=== PATIENT | female | born 1970 | race Caucasian/White ===

== ENCOUNTER 2018-10-09 22:57 | Emergency (ER) | payer OTHER ==
[~2018-10-09] VITALS: Ht 160 cm; Wt 104.3 kg
[2018-10-09 23:25] VITALS: BP_SYST 148
[2018-10-09] MEDS ORDERED: PREDNISONE 20 MG TABLET PO ONE (23:45)
[2018-10-09] MEDS ORDERED: IPRATROPIUM/ALBUTEROL SULFATE 3 ML AMPUL.NEB (DUONEB) INH ONE (23:45)
[2018-10-10 00:20] VITALS: BP_SYST 148
== END 2018-10-10 00:30 | disposition home or self-care (01) ==
LOC: SED 22:57
DX: J40 Bronchitis, not specified as acute or chronic (principal); E11.9 Type 2 diabetes mellitus without complications; I10 Essential (primary) hypertension; Z98.51 Tubal ligation status; Z88.8 Allergy status to other drugs, medicaments and biological substances
CPT/HCPCS: 94640; 99283; J7512; J7620

== ENCOUNTER 2018-10-18 08:45 | Outpatient (CLI) | payer OTHER ==
[2018-10-18 09:30] LABS: BASOPHILS % (AUTO) 0.2 % (0.0-2.0); EOSINOPHILS # (AUTO) 0.2 K/uL (0.0-0.4); EOSINOPHILS % (AUTO) 1.8 % (0.0-4.0); HEMOGLOBIN 11.8 g/dL (12.0-16.0); LYMPHOCYTES # (AUTO) 3.2 K/uL (1.0-5.5); LYMPHOCYTES % (AUTO) 35.1 % (20.5-51.5); MEAN CORPUSCULAR HEMOGLOBIN 27 pg (27-31); MEAN CORPUSCULAR HGB CONC 32 % (32-36); MEAN CORPUSCULAR VOLUME 86 fL (79.0-98.0); MONOCYTES # (AUTO) 0.9 K/uL (0.0-1.0); MONOCYTES % (AUTO) 9.3 % (1.7-9.3); NEUTROPHILS # (AUTO) 4.9 K/uL (1.8-7.7); NEUTROPHILS % (AUTO) 53.6 % (40.0-70.0); PLATELET COUNT (AUTO) 224 K/uL (130-430); RED BLOOD CELL COUNT(AUTO) 4.32 MIL/uL (4.2-6.2); RED CELL DISTRIBUTION WIDTH 14.6 % (9.0-15.0); WHITE BLOOD COUNT (AUTO) 9.2 K/uL (4.8-10.8)
[2018-10-18 09:31] LABS: BILIRUBIN,URINE NEGATIVE (NEGATIVE); BLOOD, URINE 1+ (NEGATIVE); CLARITY/URINE CLEAR (CLEAR); COLOR,URINE YELLOW (YELLOW); GLUCOSE,URINE NEGATIVE (NEGATIVE); KETONES,URINE NEGATIVE (NEGATIVE); LEUKOCYTE ESTERASE ,URINE NEGATIVE (NEGATIVE); NITRITE, URINE NEGATIVE (NEGATIVE); PROTEIN URINE NEGATIVE (NEGATIVE); UROBILINOGEN,URINE 0.2 (0.2-1.0)
[2018-10-18 10:06] LABS: BACTERIA,URINE RARE /HPF (None Seen); MUCUS,URINE 1+ /LPF (None Seen); RBC,URINE 0-3 /HPF (0-3); WBC,URINE 0-3 /HPF (0-3)
[2018-10-18 10:17] LABS: ALBUMIN 3.5 g/dL (3.4-4.8); CREATININE 0.6 mg/dL (0.55-1.30); POTASSIUM 3.7 mmol/L (3.5-5.1); THYROID STIMULATING HORMONE 1.5 uIu/mL (0.34-4.82); TOTAL BILIRUBIN 0.5 mg/dL (0.0-1.0)
[2018-10-18 10:20] LABS: ERYTHROCYTE SEDIMENTATION RATE 20 MM/HR (0-20)
[2018-10-19 14:00] LABS: HEMOGLOBIN A1C 7.4 % (4.8-5.6)
[2018-10-19 14:12] LABS: CREATININE, URINE 69.3 mg/dL; MICROALBUMIN URINE RANDOM 5.1 ug/ml (NOT ESTABLISHED); MICROALBUMIN/CREAT RATIO, UR 7.4 MG/G CRE (0.0-30.0)
== END 2018-10-18 21:12 | disposition home or self-care (01) ==
LOC: SLB 08:45
DX: I10 Essential (primary) hypertension (principal); E11.9 Type 2 diabetes mellitus without complications; E78.5 Hyperlipidemia, unspecified
CPT/HCPCS: 36415; 80053; 80061; 81000-TC; 82043; 82306; 82570; 83036; 84443-TC; 85025; 85651-TC

== ENCOUNTER 2018-11-15 14:03 | Outpatient (CLI) | payer OTHER | END 2018-11-15 20:34 | disposition home or self-care (01) | LOC: SMA 14:03 | PROVIDERS: ATTEND Specialist | DX: Z12.31 Encounter for screening mammogram for malignant neoplasm of breast (principal) | CPT/HCPCS: 77067 ==

== ENCOUNTER 2018-12-07 10:03 | Outpatient (CLI) | payer OTHER ==
[2018-12-07 10:43] LABS: BILIRUBIN,URINE NEGATIVE (NEGATIVE); BLOOD, URINE NEGATIVE (NEGATIVE); CLARITY/URINE CLEAR (CLEAR); COLOR,URINE YELLOW (YELLOW); GLUCOSE,URINE NEGATIVE (NEGATIVE); KETONES,URINE TRACE (NEGATIVE); LEUKOCYTE ESTERASE ,URINE TRACE (NEGATIVE); NITRITE, URINE NEGATIVE (NEGATIVE); PH,URINE 5.5 (5.0-8.0); PROTEIN URINE NEGATIVE (NEGATIVE); UROBILINOGEN,URINE 0.2 (0.2-1.0)
[2018-12-07 11:07] LABS: ALBUMIN 3.3 g/dL (3.4-4.8); CREATININE 0.56 mg/dL (0.55-1.30); POTASSIUM 3.8 mmol/L (3.5-5.1); TOTAL BILIRUBIN 0.5 mg/dL (0.0-1.0)
[2018-12-07 11:32] LABS: BACTERIA,URINE RARE /HPF (None Seen); MUCUS,URINE 1+ /LPF (None Seen); RBC,URINE 0-3 /HPF (0-3)
== END 2018-12-07 21:04 | disposition home or self-care (01) ==
LOC: SLB 10:03
PROVIDERS: ATTEND Family Medicine
DX: I10 Essential (primary) hypertension (principal); E11.9 Type 2 diabetes mellitus without complications
CPT/HCPCS: 36415; 80053; 80061; 81000-TC; 82043; 82570; 83036

== ENCOUNTER 2018-12-14 12:37 | Outpatient (CLI) | payer OTHER | END 2018-12-14 20:41 | disposition home or self-care (01) | LOC: SUS 12:37 | PROVIDERS: ATTEND Specialist | DX: N63.12 Unspecified lump in the right breast, upper inner quadrant (principal); N63.11 Unspecified lump in the right breast, upper outer quadrant | CPT/HCPCS: 76642 ==

== ENCOUNTER 2019-01-09 21:47 | Emergency (ER) | payer OTHER ==
[~2019-01-09] VITALS: Ht 160 cm; Wt 99.8 kg
[2019-01-09] MEDS ORDERED: TETRACAINE HCL 0.5% OPHTHALMIC DROPS 15 ML OP ONE ×2 (21:48→23:45)
[2019-01-09] MEDS ORDERED: FLUORESCEIN SODIUM 1 MG OPHTHALMIC STRIP OP ONE ×2 (21:48→23:45)
[2019-01-09 22:04] VITALS: BP_SYST 134
--- NOTE | 2019-01-09 22:13 | NUR ---
Patient to ER bed 01 to gown for evaluation. Side rails up.
--- NOTE | 2019-01-09 22:20 | NUR ---
Patient AOx4, ambulatory, presents to ER with complaint of left eye erythema and drainage since yesterday. Patient also complains of pruritus to site. Patient has been medicating with olopatadine. Patient had lasik eye surgery in August to bilateral eyes. No other symptoms or complaints.
--- NOTE | 2019-01-09 23:32 | NUR ---
ER MD Joshi at bedside for medical evaluation.
[2019-01-10 00:12] VITALS: BP_SYST 128
--- NOTE | 2019-01-10 00:12 | NUR ---
Patient given written and verbal discharge instructions and verbalizes understanding. ER MD discussed with patient the results and treatment provided. Patient in stable condition. ID arm band removed. Rx of Vigamox given. Patient educated on pain management and to follow up with PMD. Pain Scale 0/10. Opportunity for questions provided and answered. Medication side effect fact sheet provided.
== END 2019-01-10 00:12 | disposition home or self-care (01) ==
LOC: SED 21:47
DX: H10.89 Other conjunctivitis (principal); E11.9 Type 2 diabetes mellitus without complications; I10 Essential (primary) hypertension; Z88.8 Allergy status to other drugs, medicaments and biological substances
CPT/HCPCS: 99283

== ENCOUNTER → 2019-06-10 | Outpatient (CLI) | payer OTHER ==
[2019-06-13 20:39] LABS: POTASSIUM 4.3 mmol/L (3.5-5.1)
[2019-06-13 20:40] LABS: CALCIUM 8.3 mg/dL (8.4-11.0)
[2019-06-13 20:41] LABS: CREATININE 0.54 mg/dL (0.55-1.30); TOTAL BILIRUBIN 0.4 mg/dL (0.0-1.0)
[2019-06-13 20:42] LABS: ALBUMIN 3.5 g/dL (3.4-4.8)
[2019-06-13 20:43] LABS: CLARITY/URINE CLEAR (CLEAR); COLOR,URINE YELLOW (YELLOW)
[2019-06-13 20:44] LABS: BILIRUBIN,URINE NEGATIVE (NEGATIVE); BLOOD, URINE NEGATIVE (NEGATIVE); GLUCOSE,URINE NEGATIVE (NEGATIVE); KETONES,URINE NEGATIVE (NEGATIVE); LEUKOCYTE ESTERASE ,URINE NEGATIVE (NEGATIVE); NITRITE, URINE NEGATIVE (NEGATIVE); PROTEIN URINE NEGATIVE (NEGATIVE); UROBILINOGEN,URINE 0.2 (0.2-1.0)
[2019-06-13 20:54] LABS: CREATININE, URINE 62.5 mg/dL; MICROALBUMIN URINE RANDOM 5.9 ug/ml (NOT ESTABLISHED); MICROALBUMIN/CREAT RATIO, UR 9.4 MG/G CRE (0.0-30.0)
[2019-07-02 16:34] LABS: CLARITY/URINE CLEAR (CLEAR); COLOR,URINE YELLOW (YELLOW)
[2019-07-02 16:35] LABS: BILIRUBIN,URINE NEGATIVE (NEGATIVE); BLOOD, URINE NEGATIVE (NEGATIVE); GLUCOSE,URINE NEGATIVE (NEGATIVE); KETONES,URINE NEGATIVE (NEGATIVE); LEUKOCYTE ESTERASE ,URINE NEGATIVE (NEGATIVE); NITRITE, URINE NEGATIVE (NEGATIVE); PROTEIN URINE NEGATIVE (NEGATIVE); UROBILINOGEN,URINE 0.2 (0.2-1.0)
== END | disposition home or self-care (01) ==
LOC: SLB 07:35
PROVIDERS: ATTEND Family Medicine
DX: E11.9 Type 2 diabetes mellitus without complications (principal)
CPT/HCPCS: 36415; 80053; 80061; 81003; 82043; 82570; 83036

== ENCOUNTER 2019-06-15 15:33 | Outpatient (CLI) | payer OTHER | END 2019-06-15 17:58 | disposition home or self-care (01) | LOC: SCT 15:33 | PROVIDERS: ATTEND Family Medicine | DX: J32.8 Other chronic sinusitis (principal) | CPT/HCPCS: 70486-TC ==

== ENCOUNTER 2019-07-25 16:18 | Outpatient (CLI) | payer OTHER | END 2019-07-25 21:07 | disposition home or self-care (01) | LOC: SRD 16:18 | PROVIDERS: ATTEND Family Medicine | DX: M19.012 Primary osteoarthritis, left shoulder (principal) | CPT/HCPCS: 73030 ==

== ENCOUNTER 2019-09-06 09:16 | Outpatient (CLI) | payer OTHER ==
[2019-09-06 10:02] LABS: BILIRUBIN,URINE NEGATIVE (NEGATIVE); BLOOD, URINE NEGATIVE (NEGATIVE); CLARITY/URINE CLEAR (CLEAR); COLOR,URINE YELLOW (YELLOW); GLUCOSE,URINE NEGATIVE (NEGATIVE); KETONES,URINE NEGATIVE (NEGATIVE); LEUKOCYTE ESTERASE ,URINE NEGATIVE (NEGATIVE); NITRITE, URINE NEGATIVE (NEGATIVE); PROTEIN URINE NEGATIVE (NEGATIVE); UROBILINOGEN,URINE 0.2 (0.2-1.0)
[2019-09-06 10:44] LABS: ALBUMIN 3.5 g/dL (3.4-4.8); CALCIUM 8.7 mg/dL (8.4-11.0); CREATININE 0.62 mg/dL (0.55-1.30); POTASSIUM 4.1 mmol/L (3.5-5.1); TOTAL BILIRUBIN 0.4 mg/dL (0.0-1.0)
== END 2019-09-07 20:20 | disposition home or self-care (01) ==
LOC: SLB 09:16
PROVIDERS: ATTEND Family Medicine
DX: E11.9 Type 2 diabetes mellitus without complications (principal)
CPT/HCPCS: 36415; 80053; 80061; 81003; 82043; 82570; 83036

== ENCOUNTER 2019-09-15 17:33 | Outpatient (CLI) | payer OTHER ==
[2019-09-15 18:58] LABS: C-REACTIVE PROTEIN QUANT 1.1 mg/dL (0-0.5)
[2019-09-17 08:12] LABS: RA LATEX TURBID <10.0 IU/mL (0.0-13.9)
[2019-09-17 10:06] LABS: ANTI NUCLEAR AB WITH REFLEX Negative (Negative)
== END 2019-09-15 19:39 | disposition home or self-care (01) ==
LOC: SLB 17:33
PROVIDERS: ATTEND Family Medicine
DX: E78.00 Pure hypercholesterolemia, unspecified (principal); R53.83 Other fatigue
CPT/HCPCS: 36415; 82550-TC; 85651-TC; 86038; 86140; 86431

== ENCOUNTER 2019-12-01 10:23 | Outpatient (CLI) | payer OTHER ==
[2019-12-01 11:20] LABS: BILIRUBIN,URINE NEGATIVE (NEGATIVE); BLOOD, URINE 3+ (NEGATIVE); CLARITY/URINE SL CLOUDY (CLEAR); COLOR,URINE YELLOW (YELLOW); GLUCOSE,URINE NEGATIVE (NEGATIVE); KETONES,URINE NEGATIVE (NEGATIVE); LEUKOCYTE ESTERASE ,URINE TRACE (NEGATIVE); NITRITE, URINE NEGATIVE (NEGATIVE); PROTEIN URINE TRACE (NEGATIVE); UROBILINOGEN,URINE 0.2 (0.2-1.0)
[2019-12-01 11:22] LABS: BASOPHILS % (AUTO) 0.3 % (0.0-2.0); EOSINOPHILS # (AUTO) 0.4 K/uL (0.0-0.4); EOSINOPHILS % (AUTO) 4.2 % (0.0-4.0); HEMATOCRIT 35.9 % (36-48); HEMOGLOBIN 11.7 g/dL (12.0-16.0); LYMPHOCYTES # (AUTO) 3.2 K/uL (1.0-5.5); LYMPHOCYTES % (AUTO) 30.7 % (20.5-51.5); MEAN CORPUSCULAR HEMOGLOBIN 29 pg (27-31); MEAN CORPUSCULAR HGB CONC 33 % (32-36); MEAN CORPUSCULAR VOLUME 89 fL (79.0-98.0); MONOCYTES # (AUTO) 0.7 K/uL (0.0-1.0); MONOCYTES % (AUTO) 7.1 % (1.7-9.3); NEUTROPHILS # (AUTO) 6.1 K/uL (1.8-7.7); NEUTROPHILS % (AUTO) 57.7 % (40.0-70.0); PLATELET COUNT (AUTO) 182 K/uL (130-430); RED BLOOD CELL COUNT(AUTO) 4.04 MIL/uL (4.2-6.2); WHITE BLOOD COUNT (AUTO) 10.6 K/uL (4.8-10.8)
[2019-12-01 11:26] LABS: BACTERIA,URINE FEW /HPF (None Seen); RBC,URINE >100 /HPF (0-3)
[2019-12-01 11:58] LABS: ALBUMIN 3.5 g/dL (3.4-4.8); CALCIUM 8.4 mg/dL (8.4-11.0); CREATININE 0.65 mg/dL (0.55-1.30); THYROID STIMULATING HORMONE 1.57 uIu/mL (0.34-4.82); TOTAL BILIRUBIN 0.6 mg/dL (0.0-1.0)
[2019-12-02 13:40] LABS: CREATININE, URINE 100.8 mg/dL; MICROALBUMIN URINE RANDOM 48.4 ug/ml (NOT ESTABLISHED)
== END 2019-12-01 20:19 | disposition home or self-care (01) ==
LOC: SLB 10:23
DX: E11.9 Type 2 diabetes mellitus without complications (principal); I10 Essential (primary) hypertension; E78.00 Pure hypercholesterolemia, unspecified
CPT/HCPCS: 36415; 80053; 80061; 81000-TC; 82043; 82570; 83036; 84443-TC; 85025

== ENCOUNTER 2019-12-08 13:58 | Emergency (ER) | payer OTHER, SELFPAY ==
[~2019-12-08] VITALS: Ht 160 cm; Wt 106.6 kg
[2019-12-08 14:02] VITALS: BP_SYST 165
[2019-12-08] MEDS ORDERED: IPRATROPIUM/ALBUTEROL SULFATE 3 ML AMPUL.NEB (DUONEB) INH ONE (14:30)
[2019-12-08] MEDS ORDERED: PREDNISONE 20 MG TABLET PO ONE (14:30)
[2019-12-08] MEDS ORDERED: ALBUTEROL SULFATE 0.083% 2.5 MG/3 ML VIAL.NEB INH ONE (15:45)
[2019-12-08 16:20] VITALS: BP_SYST 117
== END 2019-12-08 16:20 | disposition home or self-care (01) ==
LOC: SED 13:58
DX: J45.901 Unspecified asthma with (acute) exacerbation (principal); I10 Essential (primary) hypertension; E11.9 Type 2 diabetes mellitus without complications; E78.5 Hyperlipidemia, unspecified; Z88.6 Allergy status to analgesic agent
CPT/HCPCS: 10060; 71045; 81025; 93005; 94640; 99284; J7512; J7613

== ENCOUNTER 2019-12-22 14:46 | Outpatient (CLI) | payer OTHER ==
[2019-12-22 17:22] LABS: BILIRUBIN,URINE NEGATIVE (NEGATIVE); BLOOD, URINE NEGATIVE (NEGATIVE); CLARITY/URINE CLEAR (CLEAR); COLOR,URINE YELLOW (YELLOW); GLUCOSE,URINE NEGATIVE (NEGATIVE); KETONES,URINE NEGATIVE (NEGATIVE); LEUKOCYTE ESTERASE ,URINE NEGATIVE (NEGATIVE); NITRITE, URINE NEGATIVE (NEGATIVE); PH,URINE 5.5 (5.0-8.0); PROTEIN URINE NEGATIVE (NEGATIVE); UROBILINOGEN,URINE 0.2 (0.2-1.0)
== END 2019-12-22 21:07 | disposition home or self-care (01) ==
LOC: SLB 14:46
DX: R31.9 Hematuria, unspecified (principal)
CPT/HCPCS: 81003; 87086

== ENCOUNTER 2020-03-19 09:02 | Outpatient (CLI) | payer OTHER ==
[2020-03-19 09:36] LABS: BASOPHILS % (AUTO) 0.3 % (0.0-2.0); BILIRUBIN,URINE NEGATIVE (NEGATIVE); BLOOD, URINE NEGATIVE (NEGATIVE); CLARITY/URINE CLEAR (CLEAR); COLOR,URINE YELLOW (YELLOW); EOSINOPHILS # (AUTO) 0.2 K/uL (0.0-0.4); EOSINOPHILS % (AUTO) 2.2 % (0.0-4.0); GLUCOSE,URINE NEGATIVE (NEGATIVE); HEMATOCRIT 37.4 % (36-48); HEMOGLOBIN 12.4 g/dL (12.0-16.0); KETONES,URINE NEGATIVE (NEGATIVE); LEUKOCYTE ESTERASE ,URINE NEGATIVE (NEGATIVE); LYMPHOCYTES % (AUTO) 28.1 % (20.5-51.5); MEAN CORPUSCULAR HEMOGLOBIN 29 pg (27-31); MEAN CORPUSCULAR HGB CONC 33 % (32-36); MEAN CORPUSCULAR VOLUME 87 fL (79.0-98.0); MONOCYTES # (AUTO) 0.7 K/uL (0.0-1.0); MONOCYTES % (AUTO) 6.8 % (1.7-9.3); NEUTROPHILS # (AUTO) 6.7 K/uL (1.8-7.7); NEUTROPHILS % (AUTO) 62.6 % (40.0-70.0); NITRITE, URINE NEGATIVE (NEGATIVE); PLATELET COUNT (AUTO) 179 K/uL (130-430); PROTEIN URINE NEGATIVE (NEGATIVE); RED BLOOD CELL COUNT(AUTO) 4.32 MIL/uL (4.2-6.2); UROBILINOGEN,URINE 0.2 (0.2-1.0); WHITE BLOOD COUNT (AUTO) 10.6 K/uL (4.8-10.8)
[2020-03-19 10:05] LABS: ALBUMIN 3.5 g/dL (3.4-4.8); CALCIUM 9.8 mg/dL (8.4-11.0); CREATININE 0.7 mg/dL (0.55-1.30); POTASSIUM 4.1 mmol/L (3.5-5.1); THYROID STIMULATING HORMONE 2.31 uIu/mL (0.34-4.82); TOTAL BILIRUBIN 0.6 mg/dL (0.0-1.0)
== END 2020-03-19 18:59 | disposition home or self-care (01) ==
LOC: SLB 09:02
DX: E78.1 Pure hyperglyceridemia (principal); R31.9 Hematuria, unspecified
CPT/HCPCS: 36415; 80053; 80061; 81003; 82043; 82570; 83036; 84443-TC; 85025

== ENCOUNTER 2020-04-13 08:30 | Outpatient (CLI) | payer OTHER | END 2020-04-13 21:11 | disposition home or self-care (01) | LOC: SUS 08:30 | PROVIDERS: ATTEND Physician Assistant | DX: N85.2 Hypertrophy of uterus (principal); N93.8 Other specified abnormal uterine and vaginal bleeding | CPT/HCPCS: 76830-TC; 76857 ==

== ENCOUNTER 2020-04-16 11:47 | Outpatient (CLI) | payer OTHER | END 2020-04-16 20:15 | disposition home or self-care (01) | LOC: SMA 11:47 | DX: Z12.31 Encounter for screening mammogram for malignant neoplasm of breast (principal); N63.20 Unspecified lump in the left breast, unspecified quadrant; N63.10 Unspecified lump in the right breast, unspecified quadrant | CPT/HCPCS: 77067 ==

== ENCOUNTER 2020-04-16 17:10 | Outpatient (CLI) | payer OTHER | END 2020-04-16 20:15 | disposition home or self-care (01) | LOC: SLB 17:10 | PROVIDERS: ATTEND Pathology Anatomic Pathology & Clinical Pathology | DX: R19.01 Right upper quadrant abdominal swelling, mass and lump (principal) | CPT/HCPCS: 36415; 86304 ==

== ENCOUNTER 2020-04-17 11:43 | Outpatient (CLI) | payer OTHER ==
[2020-04-17 12:27] LABS: CREATININE 0.59 mg/dL (0.55-1.30)
== END 2020-04-17 19:49 | disposition home or self-care (01) ==
LOC: SLB 11:43
PROVIDERS: ATTEND Specialist
DX: N93.8 Other specified abnormal uterine and vaginal bleeding (principal); R19.01 Right upper quadrant abdominal swelling, mass and lump
CPT/HCPCS: 36415; 82565-TC; 84520-TC

== ENCOUNTER 2020-04-19 09:56 | Outpatient (CLI) | payer OTHER ==
[2020-04-19] MEDS ORDERED: GADOBENATE DIMEGLUMINE 529 MG/ML, 15 ML VIAL IV ONE (10:32)
== END 2020-04-19 20:37 | disposition home or self-care (01) ==
LOC: SMI 09:56
PROVIDERS: ATTEND Specialist
DX: N85.2 Hypertrophy of uterus (principal); N93.8 Other specified abnormal uterine and vaginal bleeding; R19.00 Intra-abdominal and pelvic swelling, mass and lump, unspecified site
CPT/HCPCS: 72197; A9577

== ENCOUNTER 2020-05-04 11:58 | Outpatient (CLI) | payer OTHER, SELFPAY ==
[~2020-05-04] VITALS: Ht 160 cm; Wt 108.0 kg
[2020-05-07 17:09] LABS: BASOPHILS % (AUTO) 0.2 % (0.0-2.0); EOSINOPHILS # (AUTO) 0.1 K/uL (0.0-0.4); EOSINOPHILS % (AUTO) 1.1 % (0.0-4.0); HEMATOCRIT 31.5 % (36-48); HEMOGLOBIN 10.2 g/dL (12.0-16.0); LYMPHOCYTES % (AUTO) 23.4 % (20.5-51.5); MEAN CORPUSCULAR HEMOGLOBIN 29 pg (27-31); MEAN CORPUSCULAR HGB CONC 32 % (32-36); MEAN CORPUSCULAR VOLUME 89 fL (79.0-98.0); MONOCYTES # (AUTO) 0.7 K/uL (0.0-1.0); MONOCYTES % (AUTO) 5.4 % (1.7-9.3); NEUTROPHILS # (AUTO) 8.9 K/uL (1.8-7.7); NEUTROPHILS % (AUTO) 69.9 % (40.0-70.0); PLATELET COUNT (AUTO) 225 K/uL (130-430); RED BLOOD CELL COUNT(AUTO) 3.55 MIL/uL (4.2-6.2); RED CELL DISTRIBUTION WIDTH 14.6 % (9.0-15.0); WHITE BLOOD COUNT (AUTO) 12.8 K/uL (4.8-10.8)
[2020-05-07 18:03] LABS: ALBUMIN 3.7 g/dL (3.4-4.8); CALCIUM 8.4 mg/dL (8.4-11.0); CREATININE 0.82 mg/dL (0.55-1.30); POTASSIUM 3.8 mmol/L (3.5-5.1); TOTAL BILIRUBIN 0.2 mg/dL (0.0-1.0)
[2020-05-07 19:14] LABS: BILIRUBIN,URINE NEGATIVE (NEGATIVE); BLOOD, URINE 3+ (NEGATIVE); CLARITY/URINE CLOUDY (CLEAR); COLOR,URINE YELLOW (YELLOW); GLUCOSE,URINE 2+ (NEGATIVE); KETONES,URINE TRACE (NEGATIVE); LEUKOCYTE ESTERASE ,URINE NEGATIVE (NEGATIVE); NITRITE, URINE NEGATIVE (NEGATIVE); PH,URINE 5.5 (5.0-8.0); PROTEIN URINE 1+ (NEGATIVE); UROBILINOGEN,URINE 0.2 (0.2-1.0)
[2020-05-07 20:05] LABS: BACTERIA,URINE None Seen /HPF (None Seen); RBC,URINE >100 /HPF (0-3); WBC,URINE NONE SEEN /HPF (0-3)
== END 2020-05-04 13:00 | disposition home or self-care (01) ==
LOC: SLB 11:58 → EDSTATUS 05-09 07:30
PROVIDERS: ATTEND Specialist
DX: Z01.812 Encounter for preprocedural laboratory examination (principal); Z20.828 Contact with and (suspected) exposure to other viral communicable diseases; R10.2 Pelvic and perineal pain
CPT/HCPCS: 36415; 71046-TC; 80053; 81000-TC; 83036; 84703; 85025; 93005; U0003

== ENCOUNTER 2020-05-16 05:50 | Inpatient (IN) | payer OTHER, SELFPAY ==
[2020-05-14 08:02] LABS: BASOPHILS % (AUTO) 0.5 % (0.0-2.0); EOSINOPHILS # (AUTO) 0.2 K/uL (0.0-0.4); EOSINOPHILS % (AUTO) 1.7 % (0.0-4.0); HEMATOCRIT 33.3 % (36-48); HEMOGLOBIN 10.8 g/dL (12.0-16.0); LYMPHOCYTES # (AUTO) 2.6 K/uL (1.0-5.5); LYMPHOCYTES % (AUTO) 23.8 % (20.5-51.5); MEAN CORPUSCULAR HEMOGLOBIN 29 pg (27-31); MEAN CORPUSCULAR HGB CONC 32 % (32-36); MEAN CORPUSCULAR VOLUME 89 fL (79.0-98.0); MONOCYTES # (AUTO) 0.7 K/uL (0.0-1.0); MONOCYTES % (AUTO) 6.7 % (1.7-9.3); NEUTROPHILS # (AUTO) 7.4 K/uL (1.8-7.7); NEUTROPHILS % (AUTO) 67.3 % (40.0-70.0); PLATELET COUNT (AUTO) 233 K/uL (130-430); RED BLOOD CELL COUNT(AUTO) 3.74 MIL/uL (4.2-6.2); RED CELL DISTRIBUTION WIDTH 14.9 % (9.0-15.0)
[2020-05-14 08:17] LABS: ALBUMIN 3.9 g/dL (3.4-4.8); CALCIUM 8.9 mg/dL (8.4-11.0); CREATININE 0.57 mg/dL (0.55-1.30); POTASSIUM 4.2 mmol/L (3.5-5.1); TOTAL BILIRUBIN 0.5 mg/dL (0.0-1.0)
[2020-05-14 14:24] LABS: BILIRUBIN,URINE NEGATIVE (NEGATIVE); BLOOD, URINE 3+ (NEGATIVE); CLARITY/URINE CLOUDY (CLEAR); COLOR,URINE YELLOW (YELLOW); GLUCOSE,URINE NEGATIVE (NEGATIVE); KETONES,URINE NEGATIVE (NEGATIVE); LEUKOCYTE ESTERASE ,URINE NEGATIVE (NEGATIVE); NITRITE, URINE NEGATIVE (NEGATIVE); PH,URINE 5.5 (5.0-8.0); PROTEIN URINE 1+ (NEGATIVE); UROBILINOGEN,URINE 0.2 (0.2-1.0)
[2020-05-14 14:26] LABS: HCG,QUAL RESULT NEGATIVE (NEGATIVE)
[2020-05-14 14:35] LABS: BACTERIA,URINE None Seen /HPF (None Seen); RBC,URINE >100 /HPF (0-3); WBC,URINE NONE SEEN /HPF (0-3); YEAST,URINE None Seen /HPF (None Seen)
[2020-05-14 14:36] LABS: TRICHOMONAS,URINE None Seen /HPF (None Seen)
[~2020-05-16] VITALS: Ht 160 cm; Wt 108.0 kg
[2020-05-16 06:42] LABS: HCG,QUAL RESULT NEGATIVE (NEGATIVE)
[2020-05-16] MEDS ORDERED: CEFAZOLIN SOD 2 GM in D5W 50 ML IV ONE (07:00)
[2020-05-16] MEDS ORDERED: INSULIN REGULAR, HUMAN 100 UNITS/ML, 10 ML VIAL (humuLIN R) SUBCUT PRN (07:30)
[2020-05-16] MEDS ORDERED: SUGAMMADEX SODIUM 200 MG/2 ML VIAL IV ONE (07:57)
[2020-05-16] MEDS ORDERED: WATER FOR IRRIGATION,STERILE 1,000 ML IRRIG.SOLN IR ONE (07:57)
[2020-05-16] MEDS ORDERED: DEXAMETHASONE SOD PHOSPHATE 4 MG/ML VIAL IVP ONE (07:57)
[2020-05-16] MEDS ORDERED: ISOFLURANE 15 MIN GAS INH ONE (07:57)
[2020-05-16] MEDS ORDERED: METHYLERGONOVINE MALEATE 0.2 MG/ML AMP IM ONE (07:57)
[2020-05-16] MEDS ORDERED: KETOROLAC TROMETHAMINE 30 MG VIAL IVP ONE (07:57)
[2020-05-16] MEDS ORDERED: PROPOFOL 200MG/ 20ML VIAL (DIPRIVAN) IV ONE (07:57)
[2020-05-16] MEDS ORDERED: FUROSEMIDE 20 MG/2 ML VIAL IVP ONE (07:57)
[2020-05-16] MEDS ORDERED: HYDROmorphone 2 MG/ML VIAL IVP ONE (07:57)
[2020-05-16] MEDS ORDERED: LR 1,000 ML IV.SOLN IV ONE (07:57)
[2020-05-16] MEDS ORDERED: NS IRRIG SOLN 1000 ML IR ONE (07:57)
[2020-05-16] MEDS ORDERED: NS 1000 ML IV.SOLN IV ONE (07:57)
[2020-05-16] MEDS ORDERED: ONDANSETRON HCL 4 MG/2 ML VIAL IVP ONE (07:57)
[2020-05-16] MEDS ORDERED: SUCCINYLCHOLINE CHLORIDE 20 MG/ML(QUELICIN) IVP ONE (07:57)
[2020-05-16] MEDS ORDERED: ROCURONIUM BROMIDE 10 MG/ML (ZEMURON) IV ONE (07:57)
[2020-05-16] MEDS ORDERED: DEXTROSE 50%-WATER 50 ML DISP.SYRIN IVP PRN (08:00)
[2020-05-16] MEDS ORDERED: D5W 1,000 ML IV PRN (08:00)
[2020-05-16] MEDS ORDERED: DEXTROSE 37.5 GM GEL..GRAM. PO PRN (08:00)
[2020-05-16] MEDS ORDERED: ONDANSETRON HCL 4 MG/2 ML VIAL IVP PRN ×2 (10:30→10:45)
[2020-05-16] MEDS ORDERED: NALOXONE HCL 0.4 MG/ML AMP (NARCAN) IVP PRN ×3 (10:30→10:45)
[2020-05-16] MEDS ORDERED: OXYCODONE/ACETAMINOPHEN 5-325 TABLET PO PRN (10:30)
[2020-05-16] MEDS ORDERED: HYDROmorphone 1 MG INJ. 1 MG/ML AMPUL IVP PRN (10:45)
[2020-05-16] MEDS ORDERED: INSULIN REGULAR, HUMAN 100 UNITS/ML, 10 ML VIAL SUBCUT ONE (11:15)
[2020-05-16] MEDS: HYDROmorphone 1 MG INJ. 1 MG/ML AMPUL IVP PRN ×2 (11:21→11:31)
[2020-05-16] MEDS ORDERED: INSULIN REGULAR, HUMAN 100 UNITS/ML, 10 ML VIAL (humuLIN R) ONE (11:27)
[2020-05-16] MEDS ORDERED: HYDROmorphone 1 MG INJ. 1 MG/ML AMPUL ONE (11:31)
[2020-05-16 12:15] VITALS: BP_SYST 125
--- NOTE | 2020-05-16 12:15 | NUR ---
ADMISSION NOTE Received patient from surgery via gurney. Patient is awake, alert, oriented X 4. Patient oriented to hospital room, call light, toileting, pain management and safety-teach back done. Personal belongings checked and Belongings List documented. Call light within reach. Obtained VS, low 02 saturation, applied 2L O2 nasal cannula, patient denies any difficulty breathing. discontinued IVF's as ordered.
[2020-05-16] MEDS: NACL 0.9% 1,000 ML IV SCH ×2 (13:00→22:28)
--- NOTE | 2020-05-16 13:00 | NUR ---
nurse note patient in bed, eyes closed, bed in low and locked position, call light within reach, bed alarm on, respirations even, non labored
--- NOTE | 2020-05-16 13:29 | NUR ---
nurse note patient in bed, respirations even non labored, bed in low and locked position, call light within reach, bed alarm on, patient fearful of pain, requesting pain medication
[2020-05-16] MEDS: KETOROLAC TROMETHAMINE 30 MG VIAL IVP SCH ×2 (14:00→21:00)
--- NOTE | 2020-05-16 14:00 | NUR ---
nurse note repositioned patient, bed in low and locked position, call light within reach, bed alarm on, administered medications, IVF's as ordered, patient alert and oriented.
[2020-05-16] MEDS: SIMETHICONE 80 MG TAB.CHEW PO SCH ×3 (14:03→21:00)
[2020-05-16] MEDS: ceFAZolin SODIUM 2 GM in D5W 50 ML IV SCH ×2 (14:05→22:28)
--- NOTE | 2020-05-16 15:29 | NUR ---
NURSE NOTE ASSISTED WITH PATIENTS AMBULATION, STEADY GAIT, DENIES PAIN, RETURNED TO BED, RESPIRATIONS EVEN, NON LABORED, BED IN LOW AND LOCKED POSITION
[2020-05-16 15:52] VITALS: BP_SYST 138
[2020-05-16 16:00] VITALS: BP_SYST 109
[2020-05-16] MEDS ORDERED: RESEYE OP (16:23)
[2020-05-16] MEDS ORDERED: DOCU-144 PO (16:23)
[2020-05-16] MEDS ORDERED: INSU300I SQ (16:23)
[2020-05-16] MEDS ORDERED: OXYC10TA56 PO (16:23)
[2020-05-16] MEDS ORDERED: METF1000 PO (16:23)
[2020-05-16] MEDS ORDERED: MONT10TA27 PO (16:23)
[2020-05-16] MEDS ORDERED: LIP10 PO (16:23)
[2020-05-16] MEDS ORDERED: OLME20TA13 PO (16:23)
[2020-05-16] MEDS ORDERED: FERR236T3 PO (16:23)
[2020-05-16] MEDS ORDERED: FLUT1DIS IH (16:23)
[2020-05-16] MEDS ORDERED: DULA1.5P SQ (16:23)
[2020-05-16] MEDS ORDERED: GLIM4TAB PO (16:23)
--- NOTE | 2020-05-16 17:45 | NUR ---
HIGH ALERT NOTE: Called back identified within the medical roster to verify physician authenticity.
[2020-05-16] MEDS: OXYCODONE/ACETAMINOPHEN 5-325 TABLET PO PRN (18:07)
[2020-05-16] MEDS: INSULIN REGULAR, HUMAN 100 UNITS/ML, 10 ML VIAL (humuLIN R) SUBCUT PRN ×2 (18:15→21:20)
--- NOTE | 2020-05-16 19:25 | NUR ---
Closing Note Provided SBAR to night RN, patient in bed, respirations even, non labored, bed in low and locked position, call light within reach, endorsed care to night RN
--- NOTE | 2020-05-16 19:30 | NUR ---
OPENING NOTES: Received report from dayshift nurse. Patient is sitting up in the patient chair, alert and oriented X4. She appears to be in stable condition. IV on RAC noted with dry dressing. Patient has godinez draining to gravity with green colored urine. She is not having any complaints at this time. Ensured all safety precautions. Bed is locked and in the lowest position, call light within reach.
[2020-05-16 20:00] VITALS: BP_SYST 134
--- NOTE | 2020-05-16 21:00 | NUR ---
MEDICATION ADMINISTRATION: Patient is laying in bed, vital signs are within normal limits. Accucheck was done and insulin was given per sliding scale, patient tolerated well. Will continue to monitor patient.
--- NOTE | 2020-05-16 23:00 | NUR ---
RN ROUNDS: Patient is laying in bed with no s/s of distress or discomfort. She requested warm blankets and SCD's which were provided for her. Patient does not have any other concerns at this time. Will continue to monitor.
[2020-05-16] MEDS: HYDROcodone/ACETAMIN 5-325 MG TAB (NORCO/ VICODIN) PO PRN (23:42)
[2020-05-17 00:31] VITALS: BP_SYST 110
--- NOTE | 2020-05-17 01:00 | NUR ---
RN ROUNDS: Patient is laying in bed and appears to be asleep. She is not exhibiting any s/s of distress or discomfort. Will continue to monitor patient. Bed is in the lowest position and call light within reach.
--- NOTE | 2020-05-17 03:00 | NUR ---
RN ROUNDS: Patient is laying in bed and is currently asleep. She is stable condition with no s/s of distress. Will continue to monitor patient.
[2020-05-17] MEDS: KETOROLAC TROMETHAMINE 30 MG VIAL IVP SCH ×2 (03:50→08:38)
--- NOTE | 2020-05-17 04:35 | NUR ---
RN ROUNDS: Patient called requesting help to the bathroom. She states she feels like she needs to have a bowel movement. I advised patient not to strain due to s/p surgery, she verbalized understanding. After 10 minutes, patient was unable to have a bowel movement. Per patient she is not passing gas yet. Assisted patient back to bed. Will continue to monitor patient.
--- NOTE | 2020-05-17 05:07 | NUR ---
IV FLUIDS DISCONTINUED: IV fluids have been discontinued. Patient has been tolerating food and oral fluids well. Will continue to monitor.
[2020-05-17] MEDS: HYDROcodone/ACETAMIN 5-325 MG TAB (NORCO/ VICODIN) PO PRN ×2 (06:31→14:05)
--- NOTE | 2020-05-17 06:54 | NUR ---
DC GODINEZ: After deflating balloon, I discontinued godinez. Patient tolerated well. Advised patient to call for assistance to the bathroom when she needs to void, she verbalized understanding.
--- NOTE | 2020-05-17 06:57 | NUR ---
CLOSING NOTES: Assisted patient to chair, alert and oriented X4. She is in stable condition. IV on RAC with dry dressing. She is not having any complaints at this time. Reminded patient that she needs to void within the next 6 hours. Ensured all safety precautions. Bed is locked and in the lowest position, call light within reach. All needs were met throughout shift. Will endorse to dayshift nurse.
--- NOTE | 2020-05-17 08:00 | NUR ---
initial notes rec patient awake alert and sitting at bedside. ivl on the r forearm in place. no inifltration noted. resp easy and unlabored. no sob noted. abd incision with op site in placed. small amount of bleeding noted in the incision site. ambulates to the br at intervals.
--- NOTE | 2020-05-17 08:24 | NUR ---
PAGED PAGED BARBIE AVALOS AT [phone] SPOKE WITH JANNETH.
[2020-05-17] MEDS: SIMETHICONE 80 MG TAB.CHEW PO SCH ×2 (08:37→14:06)
[2020-05-17] MEDS ORDERED: metFORMIN HCL 500 MG TABLET PO SCH (09:00)
[2020-05-17] MEDS ORDERED: GLIMEPIRIDE 2 MG TABLET PO SCH (09:00)
[2020-05-17] MEDS ORDERED: INSULIN GLARGINE 100 UNITS/ML 10 ML VIAL SUBCUT SCH (09:00)
--- NOTE | 2020-05-17 09:42 | NUR ---
rounds dr fairchild called and notified him re small amount of blood leaking to the lower abdomen and it's expected. stated that patient can go home and to see him next week.
[2020-05-17] MEDS: OXYCODONE/ACETAMINOPHEN 5-325 TABLET PO PRN (10:54)
[2020-05-17 11:45] VITALS: BP_SYST 138
--- NOTE | 2020-05-17 13:00 | NUR ---
rounds seen by dr fairchild in the room. going home with the q pump. ambulates at intervals. waiting for the daughter to pick and shovel man patient.
[2020-05-17 13:12] VITALS: BP_SYST 138
--- NOTE | 2020-05-17 13:29 | NUR ---
PAGED PAGED BARBIE AVALOS AT [phone] SPOKE WITH CLIVE.
--- NOTE | 2020-05-17 15:10 | NUR ---
closing notes pt was discharged via wheelchair. instruction given re appt with dr fairchild, med rec was explained to patient eddie her pain med and diabetic meds. ivl and id band removed. stable, needs attended.
== END 2020-05-17 15:10 | disposition home or self-care (01) | DRG 742 ==
LOC: SMU 05:50
PROVIDERS: ADMIT Specialist; ATTEND Specialist
PROC: 0UT2FZZ Resection of Bilateral Ovaries, Via Natural or Artificial Opening With Percutaneous Endoscopic Assistance (ICD-10-PCS; 2020-05-16)
PROC: 0UT7FZZ Resection of Bilateral Fallopian Tubes, Via Natural or Artificial Opening With Percutaneous Endoscopic Assistance (ICD-10-PCS; 2020-05-16)
PROC: 8E0W4CZ Robotic Assisted Procedure of Trunk Region, Percutaneous Endoscopic Approach (ICD-10-PCS; 2020-05-16)
PROC: 0TJB8ZZ Inspection of Bladder, Via Natural or Artificial Opening Endoscopic (ICD-10-PCS; 2020-05-16)
PROC: 0UT9FZZ Resection of Uterus, Via Natural or Artificial Opening With Percutaneous Endoscopic Assistance (ICD-10-PCS; principal; 2020-05-16 07:57)
DX: D25.9 Leiomyoma of uterus, unspecified (principal); Z68.41 Body mass index [BMI] 40.0-44.9, adult; E11.65 Type 2 diabetes mellitus with hyperglycemia; E66.9 Obesity, unspecified; E78.00 Pure hypercholesterolemia, unspecified; I10 Essential (primary) hypertension; N93.8 Other specified abnormal uterine and vaginal bleeding; Z90.710 Acquired absence of both cervix and uterus; Z20.828 Contact with and (suspected) exposure to other viral communicable diseases
CPT/HCPCS: 36415; 80053; 81000-TC; 82948; 82962; 83036; 84703; 85025; 87081; 88307; C1727; C9399; E0190; J0330; J0690; J1100; J1170; J1815; J1885; J1940; J2210; J2405; J2704; J7030; J7060; J7120

== ENCOUNTER → 2020-06-22 | Outpatient (CLI) | payer OTHER ==
[~2020-06-22] MED LIST: DOCU-144 PO; DULA1.5P SQ; FERR236T3 PO; FLUT1DIS IH; GLIM4TAB PO; INSU300I SQ; LIP10 PO; METF1000 PO; MONT10TA27 PO; OLME20TA13 PO; OXYC10TA56 PO; RESEYE OP
[2020-06-22 08:47] LABS: BASOPHILS # (AUTO) 0.1 K/uL (0.0-0.2); BASOPHILS % (AUTO) 0.6 % (0.0-2.0); EOSINOPHILS # (AUTO) 0.4 K/uL (0.0-0.4); EOSINOPHILS % (AUTO) 3.7 % (0.0-4.0); HEMATOCRIT 30.9 % (36-48); HEMOGLOBIN 9.7 g/dL (12.0-16.0); LYMPHOCYTES # (AUTO) 3.1 K/uL (1.0-5.5); LYMPHOCYTES % (AUTO) 28.5 % (20.5-51.5); MEAN CORPUSCULAR HEMOGLOBIN 26 pg (27-31); MEAN CORPUSCULAR HGB CONC 31 % (32-36); MEAN CORPUSCULAR VOLUME 82 fL (79.0-98.0); MONOCYTES # (AUTO) 0.8 K/uL (0.0-1.0); MONOCYTES % (AUTO) 7.7 % (1.7-9.3); NEUTROPHILS # (AUTO) 6.4 K/uL (1.8-7.7); NEUTROPHILS % (AUTO) 59.5 % (40.0-70.0); PLATELET COUNT (AUTO) 277 K/uL (130-430); RED BLOOD CELL COUNT(AUTO) 3.79 MIL/uL (4.2-6.2); RED CELL DISTRIBUTION WIDTH 16.1 % (9.0-15.0); WHITE BLOOD COUNT (AUTO) 10.8 K/uL (4.8-10.8)
[2020-06-22 09:52] LABS: ALBUMIN 3.6 g/dL (3.4-4.8); CALCIUM 8.8 mg/dL (8.4-11.0); CREATININE 0.66 mg/dL (0.55-1.30); POTASSIUM 3.9 mmol/L (3.5-5.1); THYROID STIMULATING HORMONE 1.98 uIu/mL (0.36-3.74); TOTAL BILIRUBIN 0.5 mg/dL (0.0-1.0)
[2020-06-22 10:57] LABS: BILIRUBIN,URINE NEGATIVE (NEGATIVE); CLARITY/URINE CLEAR (CLEAR); COLOR,URINE YELLOW (YELLOW); GLUCOSE,URINE NEGATIVE (NEGATIVE); KETONES,URINE NEGATIVE (NEGATIVE); LEUKOCYTE ESTERASE ,URINE 1+ (NEGATIVE); NITRITE, URINE NEGATIVE (NEGATIVE); PROTEIN URINE NEGATIVE (NEGATIVE); UROBILINOGEN,URINE 0.2 (0.2-1.0)
[2020-06-22 10:58] LABS: BLOOD, URINE TRACE (NEGATIVE)
[2020-06-22 11:15] LABS: BACTERIA,URINE RARE /HPF (None Seen); MUCUS,URINE 1+ /LPF (None Seen)
== END | disposition home or self-care (01) ==
LOC: SLB 08:15
DX: E11.9 Type 2 diabetes mellitus without complications (principal); R31.9 Hematuria, unspecified
CPT/HCPCS: 36415; 80053; 80061; 81000-TC; 82043; 82570; 83036; 84443-TC; 85025

== ENCOUNTER → 2020-11-07 | Outpatient (CLI) | payer OTHER ==
[~2020-11-07] MED LIST changes: -MONT10TA27 PO; +MONT10TA33 PO
== END | disposition home or self-care (01) ==
LOC: SRD 09:58
DX: M77.32 Calcaneal spur, left foot (principal); M77.31 Calcaneal spur, right foot; M72.2 Plantar fascial fibromatosis; M79.673 Pain in unspecified foot

== ENCOUNTER 2020-12-07 07:35 | Day surgery (SDC) | payer OTHER, SELFPAY ==
[2020-12-06 10:38] LABS: BILIRUBIN,URINE NEGATIVE (NEGATIVE); BLOOD, URINE NEGATIVE (NEGATIVE); CLARITY/URINE CLEAR (CLEAR); COLOR,URINE YELLOW (YELLOW); GLUCOSE,URINE NEGATIVE (NEGATIVE); KETONES,URINE NEGATIVE (NEGATIVE); LEUKOCYTE ESTERASE ,URINE 1+ (NEGATIVE); NITRITE, URINE NEGATIVE (NEGATIVE); PH,URINE 5.5 (5.0-8.0); PROTEIN URINE NEGATIVE (NEGATIVE); UROBILINOGEN,URINE 0.2 (0.2-1.0)
[2020-12-06 10:40] LABS: BASOPHILS % (AUTO) 0.4 % (0.0-2.0); EOSINOPHILS # (AUTO) 0.3 K/uL (0.0-0.4); EOSINOPHILS % (AUTO) 2.8 % (0.0-4.0); HEMATOCRIT 36.8 % (36-48); HEMOGLOBIN 12.2 g/dL (12.0-16.0); LYMPHOCYTES # (AUTO) 2.9 K/uL (1.0-5.5); LYMPHOCYTES % (AUTO) 30.1 % (20.5-51.5); MEAN CORPUSCULAR HEMOGLOBIN 30 pg (27-31); MEAN CORPUSCULAR HGB CONC 33 % (32-36); MEAN CORPUSCULAR VOLUME 90 fL (79.0-98.0); MONOCYTES # (AUTO) 0.7 K/uL (0.0-1.0); MONOCYTES % (AUTO) 7.2 % (1.7-9.3); NEUTROPHILS # (AUTO) 5.7 K/uL (1.8-7.7); NEUTROPHILS % (AUTO) 59.5 % (40.0-70.0); PLATELET COUNT (AUTO) 172 K/uL (130-430); RED BLOOD CELL COUNT(AUTO) 4.08 MIL/uL (4.2-6.2); RED CELL DISTRIBUTION WIDTH 13.3 % (9.0-15.0); WHITE BLOOD COUNT (AUTO) 9.6 K/uL (4.8-10.8)
[2020-12-06 11:03] LABS: BACTERIA,URINE FEW /HPF (None Seen); MUCUS,URINE 1+ /LPF (None Seen); RBC,URINE 0-3 /HPF (0-3)
[2020-12-06 11:52] LABS: ALBUMIN 3.4 g/dL (3.4-4.8); CALCIUM 8.5 mg/dL (8.4-11.0); CREATININE 0.64 mg/dL (0.55-1.30); POTASSIUM 4.1 mmol/L (3.5-5.1); THYROID STIMULATING HORMONE 1.81 uIu/mL (0.36-3.74); TOTAL BILIRUBIN 0.5 mg/dL (0.0-1.0)
[~2020-12-07] VITALS: Ht 160 cm; Wt 103.0 kg
[2020-12-07 07:07] LABS: FOLATE (FOLIC ACID) >20.0 ng/mL (>3.0)
[2020-12-07 13:57] VITALS: BP_SYST 114
[2020-12-08 13:36] LABS: HEMOGLOBIN A1C 7.7 % (4.8-5.6)
== END 2020-12-07 09:30 | disposition home or self-care (01) ==
LOC: SDS 07:35 → SMU 07:35 → SDS 09:30
PROVIDERS: ATTEND Internal Medicine Gastroenterology
DX: Z12.11 Encounter for screening for malignant neoplasm of colon (principal); K63.5 Polyp of colon; K57.30 Diverticulosis of large intestine without perforation or abscess without bleeding; K64.4 Residual hemorrhoidal skin tags; E11.9 Type 2 diabetes mellitus without complications; I10 Essential (primary) hypertension; E66.9 Obesity, unspecified; Z79.899 Other long term (current) drug therapy; Z20.822 Contact with and (suspected) exposure to COVID-19
CPT/HCPCS: 36415; 45380; 80053; 80061; 81000; 82607; 82746; 82962; 83036; 83540; 84443; 85025; 88305; 99152; G0378; U0003

== ENCOUNTER 2020-12-11 18:20 | Outpatient (CLI) | payer OTHER | END 2020-12-11 20:33 | disposition home or self-care (01) | LOC: SRD 18:20 | DX: Z03.89 Encounter for observation for other suspected diseases and conditions ruled out (principal) | CPT/HCPCS: 71046-TC ==

== ENCOUNTER 2020-12-24 15:20 | Outpatient (CLI) | payer OTHER | END 2020-12-24 19:32 | disposition home or self-care (01) | LOC: SRD 15:20 | DX: M77.32 Calcaneal spur, left foot (principal); R60.9 Edema, unspecified ==